=== PATIENT | female | born 1995 | race American Indian/Alaskan Native ===

== ENCOUNTER 2019-11-12 03:32 | Emergency (ER) | payer SELFPAY ==
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
[2019-11-12 08:08] VITALS: BP 106/71
== END 2019-11-12 08:11 | disposition home or self-care (01) ==
LOC: ED 03:32
DX: R68.84 Jaw pain (principal)
CPT/HCPCS: 99282